=== PATIENT | male | born 1945 ===

== ENCOUNTER → 2023-10-19 08:30 | Outpatient (BNVA) | payer MEDICARE, BC, SELFPAY | PROVIDERS: PCP Family Medicine; Referring Provider Family Medicine; Visit Provider Nurse Practitioner Gerontology | DX: C61 Malignant neoplasm of prostate (principal) | CPT/HCPCS: 51798; 81003; 99205 ==

== ENCOUNTER → 2024-04-19 09:39 | Outpatient (BNVA) | payer MEDICARE, BC, SELFPAY | PROVIDERS: PCP Family Medicine; Referring Provider Family Medicine; Visit Provider Nurse Practitioner Gerontology | DX: C61 Malignant neoplasm of prostate | CPT/HCPCS: 36415; 51798; 84153; 99213 ==

== ENCOUNTER 2024-04-19 11:31 | Outpatient (CLI) | payer MEDICARE, BC, SELFPAY ==
[2024-04-20 18:32] LABS: PSA, Ultrasensitive 15.5 ng/mL (<= 6.5)
== END 2024-04-19 11:32 | disposition home or self-care (01) ==
LOC: LBO 11:33
PROVIDERS: PCP Family Medicine; Visit Provider Nurse Practitioner Gerontology
DX: C61 Malignant neoplasm of prostate (principal)
CPT/HCPCS: 36415; 84153

== ENCOUNTER 2024-10-25 01:32 | Outpatient (CLI) | payer MEDICARE, BC, SELFPAY | END 2024-10-25 01:33 | disposition home or self-care (01) | LOC: LBO 10-26 01:32 | PROVIDERS: PCP Family Medicine; Visit Provider Nurse Practitioner Gerontology | DX: C61 Malignant neoplasm of prostate (principal) | CPT/HCPCS: 36415; 84153 ==

== ENCOUNTER → 2024-10-25 09:30 | Outpatient (BNVA) | payer MEDICARE, BC, SELFPAY | PROVIDERS: PCP Family Medicine; Referring Provider Family Medicine; Visit Provider Nurse Practitioner Gerontology | DX: C61 Malignant neoplasm of prostate (principal); R39.9 Unspecified symptoms and signs involving the genitourinary system | CPT/HCPCS: 99213; 51798; 36415; 84153 ==